=== PATIENT | female | born 1955 | race Caucasian/White ===

== ENCOUNTER 2018-01-20 15:07 | Emergency (ER) | payer BC ==
[2018-01-20 16:19] VITALS: BP 159/79
--- NOTE | 2018-01-20 16:46 | UC ---
Complaint Female HPI - HPI Summary HPI Summary: Low abdominal pain and pressure starting a couple days ago. Feels similar to prior UTIs; pain is also somewhat like when she had diverticulitis. Had partial colectomy with diverticulitis. Had CKD, MS, DMII. - History Of Current Complaint Chief Complaint: UCGU Stated Complaint: URINARY Time Seen by Provider: 01/20/18 16:12 Hx Obtained From: Patient Hx Last Menstrual Period: n/a ?: No Onset/Duration: Gradual Onset, Lasting Days Timing: Constant Severity Initially: Mild Severity Currently: Moderate Pain Intensity: 8 Character: Burning, Cramping Aggravating Factor(s): Urination Associated Signs And Symptoms: Positive: Negative - Allergies/Home Medications Allergies/Adverse Reactions: Allergies Allergy/AdvReac Type Severity Reaction Status Date / Time Latex, Natural Rubber Allergy Rash And Verified 01/20/18 16:17 Itching Penicillins Allergy Hives Verified 01/20/18 16:17 BEES Allergy Swelling Uncoded 01/20/18 16:17 Of Face,Lips,& Throat CONTRAST DYE Allergy See Comment Uncoded 01/20/18 16:17 Home Medications: Home Medications Magnesium Oxide TAB* [MagOx 400 TAB*] 400 mg PO DAILY 01/20/18 [History Confirmed 01/20/18] Oxybutynin TAB* [Ditropan TAB*] 10 mg PO BID 01/20/18 [History Confirmed ] PMH/Surg Hx/FS Hx/Imm Hx Endocrine History: Diabetes Cardiovascular History: Hypertension GI/ History: Renal Disease Other Neurological History: MS - Surgical History Surgical History: Yes Surgery Procedure, Year, and Place: BOWEL RESECTION, hysterectomy, carpal tunnel L wrist, ureteral implants,. RIGHT TOTAL KNEE 01/13/13. TONSILLECTOMY A CHILD - Family History Known Family History: Positive: Cardiac Disease, Diabetes, Other - Cancer - maternal grandmother Family History: Father: Heart disease, diabetes. Paternal grandfather: Diabetes. Maternal grandmother: Cancer. - Social History Occupation: Retired Alcohol Use: None Substance Use Type: None Smoking Status (MU): Never Smoked Tobacco - Immunization History Most Recent Influenza Vaccination: patient states recieved 2 weeks ago Most Recent Tetanus Shot: 2011 Most Recent Pneumonia Vaccination: 2010 Review of Systems Constitutional: Negative Skin: Negative Eyes: Negative ENT: Negative Respiratory: Negative Cardiovascular: Negative Gastrointestinal: Negative Genitourinary: Dysuria, Urgency Motor: Negative Neurovascular: Negative Musculoskeletal: Negative Neurological: Negative Psychological: Negative Is Patient Immunocompromised?: No All Other Systems Reviewed And Are Negative: Yes Physical Exam Triage Information Reviewed: Yes Appearance: No Pain Distress, Ill-Appearing - chronically ill, Obese Vital Signs: Initial Vital Signs Temp 97.4 F 01/20/18 16:10 Pulse 78 01/20/18 16:10 Resp 20 01/20/18 16:10 BP 159/79 01/20/18 16:10 Pulse Ox 99 01/20/18 16:10 Vital Signs Reviewed: Yes Eye Exam: Normal Eyes: Positive: Conjunctiva Clear ENT Exam: Normal ENT: Positive: Normal ENT inspection, Hearing grossly normal, Pharynx normal, TMs normal Neck exam: Normal Neck: Positive: Supple, Nontender, No Lymphadenopathy Respiratory Exam: Normal Respiratory: Positive: Chest non-tender, Lungs clear, Normal breath sounds, No respiratory distress, No accessory muscle use Cardiovascular Exam: Normal Cardiovascular: Positive: RRR, No Murmur Abdominal Exam: Other - generalize low abd tenderness, worst at midline Abdomen Description: Positive: No Organomegaly, Soft. Negative: CVA Tenderness (R), CVA Tenderness (L), Distended, Guarding Musculoskeletal Exam: Normal Neurological Exam: Normal Neurological: Positive: Alert Psychological Exam: Normal Skin Exam: Normal Complaint Female Dx - Differential Dx/Diagnosis Provider Diagnoses: UTI Discharge - Sign-Out/Discharge Documenting (check all that apply): Patient Departure All imaging exams completed and their final reports reviewed: No Studies - Discharge Plan Condition: Stable Disposition: HOME Prescriptions: Cephalexin CAP* [Keflex 250 CAP*] 250 mg PO TID #21 cap Patient Education Materials: Urinary Tract Infection in Women (ED) Referrals: Gigi Luis MD [Primary Care Provider] - 4 Days Additional Instructions: Please check with your PCP about follow-up care and to make sure your infection has improved. You should be seen again here or at your doctor's office if your pain has not improved markedly within 72 hours. - Billing Disposition and Condition Condition: STABLE Disposition: Home
--- NOTE | 2018-01-23 07:37 | UC ---
- Progress Note Progress Note: + UTI Proteus On cephalexin await sensitivity ljj 01/23/2018 Discharge - Sign-Out/Discharge Documenting (check all that apply): Post-Discharge Follow Up All imaging exams completed and their final reports reviewed: No Studies - Discharge Plan Condition: Stable Disposition: HOME Prescriptions: Cephalexin CAP* [Keflex 250 CAP*] 250 mg PO TID #21 cap Patient Education Materials: Urinary Tract Infection in Women (ED) Referrals: Gigi Luis MD [Primary Care Provider] - 4 Days Additional Instructions: Please check with your PCP about follow-up care and to make sure your infection has improved. You should be seen again here or at your doctor's office if your pain has not improved markedly within 72 hours. - Billing Disposition and Condition Condition: STABLE Disposition: Home
== END 2018-01-20 17:00 | disposition home or self-care (01) ==
LOC: UCCORT 15:07
DX: N39.0 Urinary tract infection, site not specified (principal); E11.9 Type 2 diabetes mellitus without complications; I10 Essential (primary) hypertension; Z88.0 Allergy status to penicillin; Z91.030 Bee allergy status; Z91.041 Radiographic dye allergy status; Z91.040 Latex allergy status
CPT/HCPCS: 81003; 87077; 87086; 87186; 99212; G0463

== ENCOUNTER 2019-03-27 17:16 | Emergency (ER) | payer BC ==
--- OUTSIDE RECORDS SUMMARY | 2019-03-27 17:57 | XMS REPORT | Continuity of Care Document ---
:1955 External Reference #:[id number] Author Name Gigi Luis MD (transmitted by agent of provider Aziza Guaraddo) Address [address] [place] [address] Care Team Providers Name Role Phone Felix Prabhakar MD - Internal Medicine Care Team Information Fire Control Mechanic Gigi Luis MD - Family Care Team Information Fire Control Mechanic [phone] Medicine Nick Coto III, MD - Orthopaedic Care Team Information Fire Control Mechanic Surgery Problems Active Problems Provider Date Type 2 diabetes mellitus Bobby Gutierrez M.D. Onset: 03/05/2013 Multiple sclerosis Bobby Gutierrez M.D. Onset: 03/05/2013 Irritable bowel syndrome characterized by Onset: 05/17/2016 alternating bowel habit Obesity Onset: 03/10/2015 Allergic rhinitis due to pollen Onset: 03/10/2015 Osteoarthritis Onset: 03/10/2015 Renal failure syndrome Onset: 03/10/2015 Gastroesophageal reflux disease Onset: 03/10/2015 Hyperlipidemia Onset: 03/10/2015 Chronic renal failure Onset: 03/10/2015 Irritable bowel syndrome Onset: 03/10/2015 Depressive disorder Onset: 03/10/2015 Gout Onset: 03/10/2015 Peptic reflux disease Onset: 03/10/2015 Essential hypertension Onset: 03/10/2015 Postmenopausal state Onset: 03/10/2015 Allergic rhinitis Onset: 02/08/2011 Female climacteric state Onset: 02/08/2011 Asthma without status asthmaticus Onset: 02/08/2011 Social History Type Date Description Comments Sex Unknown ETOH Use Denies alcohol use Tobacco Use Start: Unknown Patient has never smoked Smoking Status Reviewed: 02/25/19 Patient has never smoked Exercise Type/Frequency Does not exercise Allergies, Adverse Reactions, Alerts Active Allergies Reaction Severity Comments Date Penicillin 02/07/2012 Latex 02/07/2012 Bee Sting Hives Severe 05/08/2018 Medications Active Medications SIG Qnty Indications Ordering Date Provider Katheryn dana to have 1units Z00.00 Gigi 02/25/2019 immunization at [facility] 50mcg/0.5ML pharmacy now and in Suspension Rec 3-6 months Tramadol HCL 1 by mouth four 30tabs M54.5 Gigi 02/25/2019 50mg times a day with a [facility] Tablets tylenol, prn Valsartan 1 by mouth every 30tabs I10 Gigi 11/12/2018 40mg day [facility] Tablets Montelukast Sodium 1 by mouth every 30tabs Gigi 09/16/2018 day [facility] 10mg Tablets Uloric 1 by mouth every 30tabs Gigi 12/20/2017 40mg Tablets day [facility] Pantoprazole Sodium 1 by mouth every 30tabs Gigi 10/02/2017 day [facility] 40mg Tablets DR Leopoldo Vargas test twice daily 100units [facility] DAris 06/25/2017 and as needed Gabrielle Gutierrez Strips Actos 1 by mouth every 30tabs Gigi 05/21/2017 15mg Tablets day [facility] Vitamin D3 1 by mouth every 90caps Gigi 05/17/2016 2000Unit day [facility] Capsules Atorvastatin 1 by mouth every 30tabs E78.5 Gigi 02/10/2016 Calcium day [facility] 10mg Tablets Docusate Sodium 3 at bedtime 270caps D64.9 Gigi 10/16/2014 [facility] 100mg Capsules Glipizide XL 1 tablet once daily 30tabs Gigi 5mg in the morning [facility] Tablets ER 24HR Sertraline HCL 1 by mouth every 30tabs Gigi day [facility] 100mg Tablets Biotin 1 po qd Unknown 10,000mcg Tablets Furosemide 1 by mouth midday 30tabs Gigi 20mg [facility] Tablets Magnesium Oxide 2 po qd 90caps Unknown 400mg Capsules Telmisartan 1 by mouth every Unknown 20mg day Tablets Gilenya 1 by mouth every Unknown 0.5mg day Capsules Multi Vitamin 1 po daily Unknown Tablets Oxybutynin Chloride 1 daily 30tabs Gigi ER [facility] 5mg Tablets ER 24HR Medications Administered in Office Medication SIG Qnty Indications Ordering Provider Date Injection Hyaluronan Or Ezekiel Boswell M.D. 03/20/2012 Derivative, Euflexxa Per Dose Injection Injection Hyaluronan Or Ezekiel Boswell M.D. 03/06/2012 Derivative, Euflexxa Per Dose Injection Injection Hyaluronan Or Ezekiel Boswell M.D. 02/28/2012 Derivative, Euflexxa Per Dose Injection Immunizations CPT Code Status Date Vaccine Reaction Lot # 61338 Given 02/25/2019 Fluzone High Dose risks and benefits Hi FluAD/ [id number] discussed 42369 Given 02/14/2017 Pneumonia Vaccine 97290 Given 01/07/2013 Influenza Virus 3Yrs & Over 97224 Given 02/28/2012 Influenza Virus 3Yrs & Over 44234 Given 02/28/2012 Influenza Virus 3Yrs & Over 55335 Given 10/17/2011 Tdap - Tetanus/Diptheria/Acel lular Pertussis 22752 Given 01/17/2010 Influenza Virus 3Yrs & Over 10629 Given 12/18/2008 Influenza Virus 3Yrs & Over 32994 Given 12/31/2007 Influenza Virus 3Yrs & Over 95529 Given 01/21/2007 Influenza Virus 3Yrs & Over 14229 Given 01/26/2006 Influenza Virus 3Yrs & Over 72579 Given 03/06/2003 Influenza Virus 3Yrs & Over Vital Signs Date Vital Result Comment 02/25/2019 11:44am Height 64 inches 5'4" Weight 250.00 lb Heart Rate 64 /min BP Systolic 128 mmHg BP Diastolic 74 mmHg Respiratory Rate 18 /min O2 % BldC Oximetry 98 % room air BMI (Body Mass Index) 42.9 kg/m2 11/12/2018 10:51am Weight 249.00 lb BP Systolic 138 mmHg BP Diastolic 84 mmHg Results Description No Information Available Procedures Date Code Description Status 01/09/2018 309345836 Diabetic Retinal Eye Exam Completed 03/14/2017 99715399 Mammogram Completed Medical Devices Description No Information Available Encounters Type Date Location Provider Dx Diagnosis Office Visit 11/12/2018 [facility] Gigi Luis R29.6 Repeated falls 10:45a I10 Essential (primary) hypertension G35 Multiple sclerosis Assessments Date Code Description Provider 02/25/2019 Z00.00 Encounter for general adult medical Gigi Luis MD examination without abnormal findings 02/25/2019 E11.9 Type 2 diabetes mellitus without Gigi Luis MD complications 02/25/2019 F33.1 Major depressive disorder, recurrent, Gigi Luis MD moderate 02/25/2019 M54.5 Low back pain Gigi Luis MD 02/25/2019 Z12.31 Encounter for screening mammogram for Gigi Luis MD malignant neoplasm of breast 02/25/2019 Z78.0 Asymptomatic menopausal state Gigi Luis MD 02/25/2019 Z12.11 Encounter for screening for malignant Gigi Luis MD neoplasm of colon 11/12/2018 R29.6 Repeated falls Gigi Luis MD 11/12/2018 I10 Essential (primary) hypertension Gigi Luis MD 11/12/2018 G35 Multiple sclerosis Gigi Luis MD Plan of Treatment Future Appointment(s):05/27/2019 11:45 am - Gigi Luis MD at [facility]03/12/2019 11:00 am - Liliya Allen M.D. at [facility] at [id number]/25/2019 - Gigi Luis MDZ00.00 Encounter for general adult medical examination without abnormal findingsNew Medication:Shingrix 50 mcg/ 0.5ML - ok to have immunization at pharmacy now and in 3-6 xsilmlO65.9 Type 2 diabetes mellitus without complicationsNew Labs:Hemoglobin A1c (Glyco HGB), Ordered: 02/25/19Comp Metabolic Panel, Ordered: 02/25/19CBC Auto Diff, Ordered: 02/25/19Follow up:Follow up in 3 zvrpiiJ48.1 Major depressive disorder, recurrent, moderateNew Labs:TSH (Thyroid Stim Horm), Ordered: 02/25/19Vitamin D Total 25(Oh), Ordered: 02/25/19M54.5 Low back painNew Medication:Tramadol HCL 50 mg - 1 by mouth four times a day with a tylenol, prnZ12.31 Encounter for screening mammogram for malignant neoplasm of breastNew Xrays:Mammogram Screening Norm, Ordered: 02/25/19Z78.0 Asymptomatic menopausal stateNew Xrays: Dexa Bone Study, Ordered: 02/25/19Z12.11 Encounter for screening for malignant neoplasm of colonReferral:No Doctor SelectedAllImmunizations/Injections: Pneumococcal Conjugate Vaccine 13 Valent For Intramuscular Use Functional Status Description No Information Available Mental Status Description No Information Available Referrals Refer to Reason for Referral Status Appt Date Created
--- OUTSIDE RECORDS SUMMARY | 2019-03-27 17:57 | XMS REPORT | Summary of Care ---
:1955 Author Organization [facility] Address [address] [place] [address] Care Team Providers Name Role Phone Gigi Luis MD Primary Care Provider Reason for Visit Diagnostic Radiology (Routine) Status Reason Specialty Diagnoses / Referred By Contact Referred To Procedures Contact Authorized Radiology Diagnoses Multiple sclerosis Angie Gonzalez, SECURITIES UNDERWRITER Procedures MR Cervical Spine without Contrast MR Cervical Spine with and without Contrast [address] [place] [address] Email: [email or web address] Encounter Details Date Type Department Care Team Description 02/04/2019 Hospital Encounter MRI [id number] Multiple sclerosis [address] [place] [phone] Allergies Active Allergy Reactions Severity Noted Date Comments Contrast Dye High 08/26/2012 Pt has a kidney condition which could be exacerbated Latex Hives, Rash Low 04/23/2013 Penicillins Hives 08/21/2012 documented as of this encounter (statuses as of 02/05/2019) Medications Medication Sig Dispensed Refills Start Date End Date Status montelukast (SINGULAIR) Take 10 mg by 0 Active 10 MG tablet mouth nightly. glipiZIDE (GLUCOTROL) 5 Take 5 mg by 0 Active MG tablet mouth daily pantoprazole (PROTONIX) Take 40 mg by 0 Active 40 MG tablet mouth daily. pioglitazone (ACTOS) 15 Take 15 mg by 0 Active MG tablet mouth daily. sertraline (ZOLOFT) 100 Take 100 mg by 0 Active MG tablet mouth daily. allopurinol (ZYLOPRIM) Take 100 mg by 0 Active 100 MG tablet mouth daily. furosemide (LASIX) 20 Take 20 mg by 0 Active MG tablet mouth daily. valsartan (DIOVAN) 80 Take 80 mg by 0 Active MG tablet mouth daily. magnesium oxide Take 800 mg by 0 Active (MAG-OX) 400 MG tablet mouth daily BIOTIN PO Take 10,000 0 Active mcg by mouth daily. Febuxostat (ULORIC) 40 Take 40 mg by 0 Active MG tablet mouth daily. Cholecalciferol Take 2,000 30 tablet 11 06/11/2014 Active (VITAMIN D3) 2000 UNITS Int'l Units by TABS mouth daily. docusate sodium Take 300 mg by 0 Active (COLACE) 100 MG capsule mouth daily. ofloxacin (OCUFLOX) 0.3 2 drops as 0 06/04/2018 Active % ophthalmic solution needed Both eyes promethazine-codeine as needed 0 12/04/2017 Active (PHENERGAN WITH CODEINE) 6.25-10 MG/5ML syrup atorvastatin (LIPITOR) Take 20 mg by 0 Active 20 MG tablet mouth daily lisinopril Take 20 mg by 0 Active (PRINIVIL,ZESTRIL) 20 mouth daily MG tablet Fingolimod HCl Take 1 capsule 90 capsule 1 12/23/2018 06/21/2019 Active (GILENYA) 0.5 MG by mouth daily CAPSIndications: Multiple sclerosis oxybutynin (DITROPAN TAKE ONE 30 tablet 11 01/15/2019 Active XL) 15 MG 24 hr tablet TABLET BY MOUTH EVERY DAY oxybutynin (DITROPAN TAKE ONE 30 tablet 11 01/16/2019 Active XL) 15 MG 24 hr tablet TABLET BY MOUTH EVERY DAY documented as of this encounter (statuses as of 02/05/2019) Active Problems Problem Noted Date Nerve pain 01/05/2016 Knee pain 12/03/2014 Sensory disorder 12/03/2014 Multiple sclerosis 08/21/2012 documented as of this encounter (statuses as of 02/05/2019) Social History Tobacco Use Types Packs/Day Years Used Date Never Smoker Smokeless Tobacco: Never Used Alcohol Use Drinks/Week oz/Week Comments No 0 Standard drinks or equivalent 0.0 Sex Assigned at Date Recorded Not on file Job Start Date Occupation Industry Not on file Not on file Not on file Travel History Travel Start Travel End No recent travel history available. documented as of this encounter Last Filed Vital Signs Not on filedocumented in this encounter Plan of Treatment Date Type Specialty Care Team Description 07/09/2019 Office Visit Neurology Angie Gonzalez NP [address] [place] [address] [phone] Health Maintenance Due Date Last Done Comments Hepatitis C Screening (B. 1955 [id number]) MMR Vaccines (1 of 1 - Standard 1956 series) DTaP,Tdap,and Td Vaccines (1 - 1960 Tdap) Breast Cancer Screening 2 years 2003 Colon Cancer Screening 10 yrs 2003 Zoster Vaccines (1 of 2) 2003 Osteoporosis Screening 2 yr 2018 03/11/2014 Pneumococcal Vaccine: 65+ Years (1 2018 of 2 - PCV13) Influenza Vaccine 12/24/2018 HIB Vaccines Aged Out No longer eligible based on patient's age to complete this topic Hepatitis A Vaccines Aged Out No longer eligible based on patient's age to complete this topic Hepatitis B Vaccines Aged Out No longer eligible based on patient's age to complete this topic IPV Vaccines Aged Out No longer eligible based on patient's age to complete this topic Pneumococcal Vaccine: Pediatrics Aged Out No longer eligible based on (0 to 5 Years) and At-Risk patient's age to complete Patients (6 to 64 Years) this topic Varicella Vaccines Aged Out No longer eligible based on patient's age to complete this topic documented as of this encounter Procedures Procedure Name Priority Date/Time Associated Diagnosis Comments MR CERVICAL SPINE Routine 02/04/2019 11:04 AM Multiple sclerosis Results [place] [id number] the results section. MR BRAIN WITHOUT Routine 02/04/2019 11:04 AM Multiple sclerosis Results for this CONTRAST [id number] EST procedure are in the results section. documented in this encounter Results MR Brain without Contrast (02/04/2019 11:04 AM EST) Specimen Impressions Performed At IMPRESSION: [facility] No significant interval change regarding the multiple foci of signal alteration within the periventricular, subcortical and deep white matter which may represent foci of demyelination in the appropriate clinical setting. Narrative Performed At 02/04/2019 10:18 AM [facility] MR BRAIN WITHOUT CONTRAST [id number] ORDERING CLINICAL INFORMATION: evaluation of ms progression MR IMAGING OF THE BRAIN WITHOUT CONTRAST PROCEDURE: MR images were acquired using multiple sequences in multiple planes. COMPARISON: MRI dated 08/21/2017 FINDINGS: No significant interval change in the appearance of the multiple areas of discrete and confluent T2 FLAIR hyperintensities in the periventricular, subcortical and deep white matter likely representing foci of demyelination. Redemonstration of T2 hyperintense focus in the right paramedian ventral medulla and the punctate T2 hyperintensities in the left posterior cerebellum, unchanged. Good avlenzuela-white matter differentiation. Midline structures including corpus callosum and cerebellar tonsils are normal. The ventricles, sulci and fissures are normal in size and configuration for the patient's age. No extra-axial fluid collection is present. Normal flow voids in the major vessels including the venous sinuses. The visualized paranasal sinuses are clear. The mastoid air cells are clear. The orbits are normal. Procedure Note Interface, Received Via [facility] - 02/04/2019 1:31 PM EST 02/04/2019 10:18 AM MR BRAIN WITHOUT CONTRAST [id number] ORDERING CLINICAL INFORMATION: evaluation of ms progression MR IMAGING OF THE BRAIN WITHOUT CONTRAST PROCEDURE: MR images were acquired using multiple sequences in multiple planes. COMPARISON: MRI dated 08/21/2017 FINDINGS: No significant interval change in the appearance of the multiple areas of discrete and confluent T2 FLAIR hyperintensities in the periventricular, subcortical and deep white matter likely representing foci of demyelination. Redemonstration of T2 hyperintense focus in the right paramedian ventral medulla and the punctate T2 hyperintensities in the left posterior cerebellum, unchanged. Good valenzuela-white matter differentiation. Midline structures including corpus callosum and cerebellar tonsils are normal. The ventricles, sulci and fissures are normal in size and configuration for the patient's age. No extra-axial fluid collection is present. Normal flow voids in the major vessels including the venous sinuses. The visualized paranasal sinuses are clear. The mastoid air cells are clear. The orbits are normal. IMPRESSION: No significant interval change regarding the multiple foci of signal alteration within the periventricular, subcortical and deep white matter which may represent foci of demyelination in the appropriate clinical setting. Performing Organization Address City/State/Zipcode Phone Number [facility] [address] [place] [address] MR Cervical Spine without Contrast (02/04/2019 11:04 AM EST) Specimen Impressions Performed At IMPRESSION: [facility] Within the limitation of the study there are stable multiple foci of signal alteration within the cord representing demyelinating plaques in the appropriate clinical setting. Multilevel degenerative changes as above described with interval worsening of the disc lesion at C6-7 Narrative Performed At 02/04/2019 12:59 PM MR CERVICAL SPINE WITHOUT CONTRAST [facility] ORDERING CLINICAL INFORMATION: evaluation of ms progression TECHNIQUE: Multiplanar multi-sequential imaging of the cervical spine was performed without intravenous contrast. COMPARISON: MRI dated 08/21/2017 FINDINGS: Straightening of the cervical lordosis is present. The vertebrae are normal in alignment. The vertebral bodies are normal in height. Age-appropriate fatty marrow changes are observed. The craniocervical junction is normal. The spinal canal is developmentally normal. Evaluation of abnormal signal of the cord in the axial T2 is limited due to motion. By comparing the T2 MEDIC axial images there has been no significant interval change in the multiple foci of signal al teration within the cervical spinal cord representing demyelinating plaques. Multilevel degenerative changes are again noted. C2-C3: No disc herniation, spinal canal or foraminal narrowing. C3-C4: There is no significant disc lesion. There is no significant narrowing of the spinal canal. There is moderate to severe left neural foramina narrowing. C4-C5: There is a disc osteophyte complex and central disc broad-based protrusion with mild narrowing of the spinal canal. There is moderate to severe left and moderate right neural foramina narrowing. C5-C6: There is redemonstration of diffuse disc bulge and central disc protrusion with moderate narrowing of the spinal canal and abutment of the anterior aspect of the cord at this level. There is moderate to severe left and mild narrowing of the right neural foramen. C6-C7: There is redemonstration of diffuse disc bulge which appears to be more prominent compared to the prior study causing moderate narrowing of the spinal canal. There is severe left and mild to moderate right neural foramina narrowing. C7-T1: There is a disc osteophyte complex with mild narrowing of the spinal canal. There is mild bilateral neural foramina narrowing. Procedure Note Interface, Received Via [facility] - 02/04/2019 1:24 PM EST 02/04/2019 12:59 PM MR CERVICAL SPINE WITHOUT CONTRAST ORDERING CLINICAL INFORMATION: evaluation of ms progression TECHNIQUE: Multiplanar multi-sequential imaging of the cervical spine was performed without intravenous contrast. COMPARISON: MRI dated 08/21/2017 FINDINGS: Straightening of the cervical lordosis is present. The vertebrae are normal in alignment. The vertebral bodies are normal in height. Age-appropriate fatty marrow changes are observed. The craniocervical junction is normal. The spinal canal is developmentally normal. Evaluation of abnormal signal of the cord in the axial T2 is limited due to motion. By comparing the T2 MEDIC axial images there has been no significant interval change in the multiple foci of signal alteration within the cervical spinal cord representing demyelinating plaques. Multilevel degenerative changes are again noted. C2-C3: No disc herniation, spinal canal or foraminal narrowing. C3-C4: There is no significant disc lesion. There is no significant narrowing of the spinal canal. There is moderate to severe left neural foramina narrowing. C4-C5: There is a disc osteophyte complex and central disc broad-based protrusion with mild narrowing of the spinal canal. There is moderate to severe left and moderate right neural foramina narrowing. C5-C6: There is redemonstration of diffuse disc bulge and central disc protrusion with moderate narrowing of the spinal canal and abutment of the anterior aspect of the cord at this level. There is moderate to severe left and mild narrowing of the right neural foramen. C6-C7: There is redemonstration of diffuse disc bulge which appears to be more prominent compared to the prior study causing moderate narrowing of the spinal canal. There is severe left and mild to moderate right neural foramina narrowing. C7-T1: There is a disc osteophyte complex with mild narrowing of the spinal canal. There is mild bilateral neural foramina narrowing. IMPRESSION: Within the limitation of the study there are stable multiple foci of signal alteration within the cord representing demyelinating plaques in the appropriate clinical setting. Multilevel degenerative changes as above described with interval worsening of the disc lesion at C6-7 Performing Organization Address City/State/Zipcode Phone Number [facility] [address] [place] [address] documented in this encounter Visit Diagnoses Diagnosis Multiple sclerosis documented in this encounter
[2019-03-27 18:31] VITALS: BP 135/64
--- NOTE | 2019-03-27 20:22 | UC ---
Truncal Trauma HPI - HPI Summary HPI Summary: 63 yo female with cough x 2-3 days today bent over washer and felt POP below right right pain with deep breath or movement hx asthma - History Of Current Complaint Chief Complaint: UCGeneralIllness Stated Complaint: COUGH, RIB PAIN Time Seen by Provider: 03/27/19 19:47 Hx Obtained From: Patient Hx Last Menstrual Period: n/a Onset/Duration: Sudden Onset, Lasting Hours Severity Initially: Severe Severity Currently: Severe Pain Intensity: 8 Pain Scale Used: 0-10 Numeric Mechanism Of Injury: Other - bending Aggravating Factor(s): Movement, Deep Breathing Alleviating factor(s): Rest Associated Signs And Symptoms: Positive: Chest Pain, Cough - Allergies/Home Medications Allergies/Adverse Reactions: Allergies Allergy/AdvReac Type Severity Reaction Status Date / Time Latex, Natural Rubber Allergy Rash And Verified 03/27/19 18:20 Itching Penicillins Allergy Hives Verified 03/27/19 18:20 BEES Allergy Swelling Uncoded 03/27/19 18:20 Of Face,Lips,& Throat CONTRAST DYE Allergy See Comment Uncoded 03/27/19 18:20 Home Medications: Home Medications Acetaminophen [Tylenol] 2 tab PO ONCE 03/27/19 [History Confirmed 03/27/19] traMADol TAB* [Ultram*] 50 mg PO Q6HR PRN 03/27/19 [History Confirmed 03/27/19] PMH/Surg Hx/FS Hx/Imm Hx Previously Healthy: Yes Endocrine History: Diabetes Cardiovascular History: Hypertension - Surgical History Surgical History: Yes Surgery Procedure, Year, and Place: bowel resection. hysterectomy. carpal tunnel L wrist. ureteral implants. L achilles tendon repair. R total replacement 01/13/13. tonsillectomy - Family History Known Family History: Positive: Cardiac Disease, Diabetes, Other - Cancer - maternal grandmother Family History: Father: Heart disease, diabetes. Paternal grandfather: Diabetes. Maternal grandmother: Cancer. - Social History Alcohol Use: None Substance Use Type: None Smoking Status (MU): Never Smoked Tobacco - Immunization History Most Recent Influenza Vaccination: patient states recieved 2 weeks ago Most Recent Tetanus Shot: 2011 Most Recent Pneumonia Vaccination: 2010 Review of Systems All Other Systems Reviewed And Are Negative: Yes Constitutional: Positive: Negative Skin: Positive: Negative Eyes: Positive: Negative ENT: Positive: Nasal Discharge, Sinus Congestion, Sinus Pain/Tenderness Respiratory: Positive: Cough Cardiovascular: Positive: Negative Gastrointestinal: Positive: Negative Genitourinary: Positive: Negative Motor: Positive: Negative Neurovascular: Positive: Negative Musculoskeletal: Positive: Negative Neurological: Positive: Negative Psychological: Positive: Negative Physical Exam Triage Information Reviewed: Yes Appearance: Well-Appearing, No Pain Distress, Well-Nourished Vital Signs: Initial Vital Signs Temp 97.5 F 03/27/19 18:24 Pulse 72 03/27/19 18:24 Resp 17 03/27/19 18:24 BP 135/64 03/27/19 18:24 Pulse Ox 100 03/27/19 18:24 Vital Signs Reviewed: Yes Eyes: Positive: Conjunctiva Clear ENT: Positive: Hearing grossly normal. Negative: Nasal congestion, Nasal drainage, Tonsillar swelling, Trismus, Dental tenderness, Sinus tenderness Neck: Positive: Supple, Nontender, No Lymphadenopathy Respiratory: Positive: Wheezing. Negative: Chest non-tender Cardiovascular: Positive: RRR, No Murmur Abdomen Description: Positive: Nontender, No Organomegaly Bowel Sounds: Positive: Present Musculoskeletal: Positive: ROM Intact, No Edema Neurological: Positive: Alert Psychological Exam: Normal Skin Exam: Normal Images Front/Back of Body, Lg ([facility]): 1 - tender here/pain with rib spring Diagnostics - Radiology No standard instances Radiology Interpretation Completed By: ED Physician Summary of Radiographic Findings: no ptx, no rib fx noted Truncal Trauma Course/Dx - Differential Dx/Diagnosis Provider Diagnosis: Rib pain on right side Discharge ED - Sign-Out/Discharge Documenting (check all that apply): Patient Departure All imaging exams completed and their final reports reviewed: No Studies - Discharge Plan Condition: Stable Disposition: HOME Patient Education Materials: Rib Contusion (ED) Referrals: Gigi Luis MD [Primary Care Provider] - 1 Week Additional Instructions: heating pad use inhaler as directed OFFICIAL XR reading pending - Billing Disposition and Condition Condition: STABLE Disposition: Home
[2019-03-27] MEDS ORDERED: Albuterol HFA INHALER* 8 gm MDI INH ONE (20:46)
--- NOTE | 2019-03-28 22:18 | UC ---
- Progress Note Progress Note: Final radiologist reading of rib x-rays from March 27, 2019 by radiologist is negative for fracture. Provider interpretation sent is the same therefore there is no discrepancy. Course/Dx - Diagnoses Provider Diagnoses: Rib pain on right side Discharge ED - Sign-Out/Discharge Documenting (check all that apply): Patient Departure All imaging exams completed and their final reports reviewed: Yes - Discharge Plan Condition: Stable Disposition: HOME Patient Education Materials: Rib Contusion (ED) Referrals: Gigi Luis MD [Primary Care Provider] - 1 Week Additional Instructions: heating pad use inhaler as directed OFFICIAL XR reading pending - Billing Disposition and Condition Condition: STABLE Disposition: Home
== END 2019-03-27 21:01 | disposition home or self-care (01) ==
LOC: UCCORT 17:16
DX: R07.81 Pleurodynia (principal); E11.9 Type 2 diabetes mellitus without complications; I10 Essential (primary) hypertension; Z91.040 Latex allergy status; Z88.0 Allergy status to penicillin; Z91.030 Bee allergy status; Z91.041 Radiographic dye allergy status
CPT/HCPCS: 99213; A9270-GY; G0463

== ENCOUNTER 2020-04-20 07:30 | Inpatient (IN) ==
[2020-06-08] MEDS ORDERED: Buffered Lidocaine 1% SYRIN 1 ml INTRADERM ONE ×2 (06:00→07:53)
[2020-06-08] MEDS ORDERED: Dexamethasone IV 4 MG/ML VIAL 1 ml VIAL IV SLOW PU ONE (06:00)
[2020-06-08] MEDS ORDERED: Lactated Ringers 1000 ml BAG 1,000 ML IV SCH (06:00)
[2020-06-08] MEDS ORDERED: Dexamethasone IV 4 MG/ML VIAL 1 ml VIAL ONE (07:53)
[2020-06-08] MEDS ORDERED: Clindamycin 900 MG/D5W BAG 900 MG/50 ML BAG IVPB ONE (07:53)
[2020-06-08] MEDS ORDERED: Ropivacaine 5 MG/ML 20 ML VIAL 0.5% (100 MG) ONE (08:31)
[2020-06-08] MEDS ORDERED: Rocuronium 50 mg VIAL 10 mg/ml 5 ml VIAL (50 mg) ONE ×2 (09:12→09:15)
[2020-06-08] MEDS ORDERED: fentaNYL 250 mcg/5 ml 50 MCG/ML 5 ml VIAL (250 MCG) ONE (09:12)
[2020-06-08] MEDS ORDERED: Midazolam 2 mg/2 ml VIAL 1 mg/ml 2 ml VIAL (2 mg) ONE (09:12)
[2020-06-08] MEDS ORDERED: Lidocaine 2% PF 5 ML VIAL ONE (09:15)
[2020-06-08] MEDS ORDERED: Propofol 10 MG/ML 20 ML BTL ONE (09:15)
[2020-06-08] MEDS ORDERED: HYDROmorphone 1 MG/1 ML SYRINGE ONE ×2 (09:55→13:04)
[2020-06-08] MEDS ORDERED: Magnesium Hydroxide LIQ 30 ML UDC PO PRN (10:42)
[2020-06-08] MEDS ORDERED: Lactulose 30 ml UDC PO PRN (10:42)
[2020-06-08] MEDS ORDERED: diPHENhydraMINE IV 50 MG/ML 1 ml VIAL (BENADRYL) IV PRN (10:42)
[2020-06-08] MEDS ORDERED: diPHENhydraMINE 25 mg TAB PO PRN (10:42)
[2020-06-08] MEDS ORDERED: Ondansetron 4 mg VIAL 2 MG/ML 2 ml VIAL IV PRN ×2 (10:42→11:50)
[2020-06-08] MEDS ORDERED: Ondansetron ODT 4 mg TAB 4 MG TAB PO PRN (10:42)
[2020-06-08] MEDS ORDERED: Morphine 2 MG/ML SYRINGE IV PRN (10:42)
[2020-06-08] MEDS ORDERED: Ondansetron 4 mg VIAL 2 MG/ML 2 ml VIAL ONE (10:50)
[2020-06-08] MEDS ORDERED: ROPIVACAINE 5 MG/ML 30 ML BTL (0.5%) ONE (11:03)
[2020-06-08] MEDS ORDERED: fentaNYL 100 mcg/2 ml 50 MCG/ML VIAL IV PRN (11:50)
[2020-06-08] MEDS ORDERED: Naloxone 0.4 mg VIAL 0.4 mg/ml 1 ml VIAL IV PRN (11:50)
[2020-06-08] MEDS: HYDROmorphone 1 MG/1 ML SYRINGE IV PRN ×2 (13:07→13:12)
[2020-06-08] MEDS: Lactated Ringers 1000 ml BAG 1,000 ML IV SCH (14:44)
[2020-06-08] MEDS: oxyCODONE/Acetamin 5/325 mg TAB PO PRN ×2 (14:52→22:30)
[2020-06-08] MEDS ORDERED: Dextrose 50% Syringe 50 ml 25 GM/50 ML SYRINGE IV PUSH PRN (17:28)
[2020-06-08] MEDS: Clindamycin 600 MG/D5W BAG 600 MG/50 ML BAG IV SCH (17:32)
[2020-06-08] MEDS: ITRACONAZOLE 200 MG PO SCH (17:36)
[2020-06-08] MEDS: Magnesium Hydroxide LIQ 30 ML UDC PO SCH (20:09)
[2020-06-09] MEDS: Clindamycin 600 MG/D5W BAG 600 MG/50 ML BAG IV SCH ×2 (00:59→09:39)
[2020-06-09] MEDS: Lactated Ringers 1000 ml BAG 1,000 ML IV SCH (01:18)
[2020-06-09] MEDS: oxyCODONE/Acetamin 5/325 mg TAB PO PRN ×3 (05:32→14:44)
[2020-06-09 07:03] LABS: Hematocrit 29 % (35-47); Hemoglobin 9.9 g/dL (12.0-16.0); Mean Platelet Volume 8.3 fL (7.4-10.4); Platelet Count 134 10^3/uL (150-450)
[2020-06-09 07:08] LABS: BUN/Creatinine Ratio 23.4 (8-20); Calcium 8.6 mg/dL (8.6-10.3); EGFR African American 59.3 (>60); Potassium 4.4 mmol/L (3.5-5.0)
[2020-06-09] MEDS ORDERED: FINGOLIMOD 0.5 MG PO SCH (09:00)
[2020-06-09] MEDS: Magnesium Hydroxide LIQ 30 ML UDC PO SCH ×2 (09:00→21:43)
[2020-06-09] MEDS: CMC:Febuxostat 40 mg TAB (NF) PO SCH (09:32)
[2020-06-09] MEDS: Vitamin THERAPEUTIC TAB PO SCH (09:32)
[2020-06-09] MEDS: ITRACONAZOLE 200 MG PO SCH ×2 (09:36→15:58)
[2020-06-09] MEDS: FINGOLIMOD 0.5 MG PO SCH (15:51)
[2020-06-10 06:21] LABS: Hematocrit 28 % (35-47); Hemoglobin 9.6 g/dL (12.0-16.0); Platelet Count 115 10^3/uL (150-450)
[2020-06-10] MEDS: ITRACONAZOLE 200 MG PO SCH (07:30)
[2020-06-10] MEDS: Magnesium Hydroxide LIQ 30 ML UDC PO SCH (09:18)
[2020-06-10 09:27] VITALS: BP 140/64
[2020-06-10] MEDS: CMC:Febuxostat 40 mg TAB (NF) PO SCH (09:31)
[2020-06-10] MEDS: Vitamin THERAPEUTIC TAB PO SCH (09:31)
[2020-06-10] MEDS: FINGOLIMOD 0.5 MG PO SCH (09:31)
[2020-06-11] MEDS ORDERED: Scopolamine PATCH Remove NOTE PATCH OFF ONE (06:00)
== END 2020-06-10 12:20 | disposition home or self-care (01) | DRG 302 ==
LOC: AA 06-08 07:48 → SSU 06-08 14:22
PROVIDERS: ADMIT Orthopaedic Surgery Adult Reconstructive Orthopaedic Surgery; ATTEND Orthopaedic Surgery Adult Reconstructive Orthopaedic Surgery